=== PATIENT | male | born 1965 | race Caucasian/White ===

== ENCOUNTER 2020-01-20 07:59 | Outpatient (CLI) | payer OTHER, SELFPAY ==
--- NOTE | 2020-01-20 08:12 | ECG_ITS ---
[facility] Test Date: 2020-01-20 Pat Name: Esau Engle Department: Room: Gender: Male Rn Iv Therapy: Nina Lockett : 1965 Requested By: Qamar Camacho Order Number: [id number] Nabil MD: Moni Lutz M.D. Interpretive Statements NAME OF STUDY: TREADMILL STRESS TEST INDICATION: Shortness of Breath Baseline blood pressure of 115/70 mm Hg, heart rate of 50 beats beats per minute and oxygen saturation of 94%. EKG showed normal sinus rhythm, right axis deviation. Poor anterior R wave progression. The patient exercised for 11 minutes 35 seconds on a standard Rashaun protocol. Patient attained a maximum heart rate of 125 beats per minute(75% % of the maximum predicted heart rate) with a blood pressure at the peak exercise of 183/99 mm Hg, oxygen saturation 89% and heart rate of 124 bpm. The EKG at the peak exercise revealed sinus tachycardia with half millimeter upsloping ST depression in inferior leads not meeting diagnostic criteria of ischemia. Interpretation limited by artifact. Patient did not have any chest pain or any significant arrhythmis with the exercise. Patient developed intraprocedural shortness of breath and fatigue and the procedure was terminated due to that. During the recovery phase, there were no new changes. Blood pressure at the end of the recovery phase was 149/60 mm Hg with a heart rate of 69 beats per minute and oxygen saturation 96%. Symptoms of shortness of breath resolved by discharge CONCLUSION: 1. Normal EKG response to treadmill exercise with submaximal stress. Patient reached 75% of maximum predicted heart rate. 2. No exercise-induced chest pain or cardiac arrhythmia. Patient did develop intraprocedural shortness of breath and oxygen saturation at peak exercise of 89%. 3. Excellent exercise tolerance, attained a maximum of 13.5 METs. Maximum VO2 of 47.3 mL/kg/min. 4. Baseline normal blood pressure with normal response to exercise. Electronically Signed On 01-21-2020 13:38:58 CDT by Moni Lutz M.D. [email or web address]
[2020-01-20 08:23] VITALS: BMI 28.7
[2020-01-20 08:24] VITALS: BP 161/58; PULSE 84
== END 2020-01-20 08:00 | disposition home or self-care (01) ==
LOC: CDL 08:04
PROVIDERS: PCP Family Medicine; Visit Provider Family Medicine
DX: R07.9 Chest pain, unspecified (principal); I49.8 Other specified cardiac arrhythmias; R06.02 Shortness of breath
CPT/HCPCS: 93017

== ENCOUNTER 2020-05-11 15:24 | Outpatient (CLI) | payer OTHER, SELFPAY ==
--- NOTE | 2020-05-11 15:40 | USCV_ITS ---
Esau Engle Age: 54 Gender: M : 1965 Exam Date: 05/11/2020 15:57 Ordering Phys: Mary Ellen Jacome MD ([email or web address]) Technologist: Deepti Fonseca [place] [facility] [place]: chest pain BP: / HR: 65 Rhythm: Sinus Technical Quality: Adequate MEASUREMENTS (Male / Female) Normal Values 2D ECHO LV Diastolic Diameter PLAX 4.6 cm 4.2 - 5.9 / 3.9 - 5.3 cm LV Systolic Diameter PLAX 3.5 cm LV Chamber Size 4.3 cm IVS Diastolic Thickness 1.1 cm 0.6 - 1.0 / 0.6 - 0.9 cm IVS Systolic Thickness 1.8 cm LVPW Diastolic Thickness 1.3 cm 0.6 - 1.0 / 0.6 - 0.9 cm LVPW Systolic Thickness 1.5 cm RV Chamber Size 3.8 cm LVOT Diameter 2.0 cm LV Ejection Fraction 2D Teich 48.4 % LV Ejection Fraction MOD 2C 53.1 % LV Ejection Fraction 2C AL 52.5 % LA Diameter 3.2 cm LA Width 3.0 cm LA Height 3.9 cm RA Width 4.0 cm RA Height 3.6 cm Aorta at Sinotubular Diameter 3.2 cm M-MODE LV Diastolic Diameter MM 4.5 cm 4.2 - 5.9 / 3.9 - 5.3 cm LV Systolic Diameter MM 2.9 cm LV Ejection Fraction MM Teich 67.1 % IVS Diastolic Thickness MM 1.1 cm 0.6 - 1.0 / 0.6 - 0.9 cm IVS Systolic Thickness MM 1.7 cm LVPW Diastolic Thickness MM 1.0 cm 0.6 - 1.0 / 0.6 - 0.9 cm LVPW Systolic Thickness MM 2.0 cm RV Diastolic Diameter MM 1.6 cm Aortic Annulus Diameter 3.2 cm LA Ao Ratio MM 1.2 MV E Point Septal Separation 0.3 cm DOPPLER AV Peak Velocity 156.0 cm/s LVOT Peak Velocity 85.0 cm/s AV Area Cont Eq vti 1.9 cm squared AV Area Cont Eq pk 1.8 cm squared MV Area PHT 3.7 cm squared Mitral E to A Ratio 1.5 MV E' Velocity 57.0 cm/s Mitral E to MV E' Ratio 7.9 Mitral E to LV E' Lateral Ratio 7.6 Mitral E to LV E' Septal Ratio 8.1 TR Peak Velocity 143.0 cm/s TR Peak Gradient 8.2 mmHg TR Mean Velocity 106.8 cm/s TR Mean Gradient 5.0 mmHg TR Velocity Time Integral 36.8 cm TV Peak E Velocity 79.0 cm/s Right Atrial Pressure 3.0 mmHg Pulmonary Artery Systolic Pressu 11.2 mmHg PV Peak Velocity 70.0 cm/s RV Acceleration Time 0.2 s RV Ejection Time 0.4 s RV AcT/ET 0.6 FINDINGS Left Ventricle Normal left ventricular size and systolic function, EF 58 %. No regional wall motion abnormalities. Right Ventricle Normal right ventricular size and systolic function. Right Atrium Normal right atrial size. Left Atrium Normal left atrial size. Mitral Valve No gross morphologic abnormalities Aortic Valve No gross morphology abnormality Tricuspid Valve Trace tricuspid valve regurgitation. Pulmonic Valve Pulmonic valve not well visualized. Pericardium No pericardial effusion. Aorta Normal aortic annulus size. CONCLUSIONS Normal left ventricular size and systolic function, EF 58 %. No regional wall motion abnormalities. Normal chamber sizes Trace tricuspid valve regurgitation. There is no pericardial effusion. There are no intracardiac masses. No previous study is available for comparison. Dr Mary Ellen Jacome MD FACC (Electronically Signed) Final Date: 11 May 2020 19:57 S
== END 2020-05-11 15:25 | disposition home or self-care (01) ==
LOC: US 15:26
PROVIDERS: PCP Family Medicine; Visit Provider Internal Medicine Cardiovascular Disease
DX: R07.9 Chest pain, unspecified; I07.1 Rheumatic tricuspid insufficiency
CPT/HCPCS: 93306